=== PATIENT | male | born 1965 | race Caucasian/White ===

== ENCOUNTER 2017-04-14 23:24 | Inpatient (IN) | payer OTHER ==
[2017-04-14] MEDS ORDERED: MORPHINE SULFATE 10 MG/ML INJ IV PRN (23:55)
[2017-04-14] MEDS ORDERED: KETOROLAC TROMETHAMINE INJ/PF 30 MG/1 ML SDV IV ONE (23:55)
[2017-04-15] MEDS ORDERED: KETOROLAC TROMETHAMINE INJ/PF 30 MG/1 ML SDV ONE (00:01)
[2017-04-15 00:03] LABS: ABSOLUTE BASOPHILS # (AUTO) 0.1 10^3/uL (0.0-0.2); ABSOLUTE EOSINOPHILS # (AUTO) 0.2 10^3/uL (0.0-0.6); ABSOLUTE LYMPHOCYTES (AUTO) 3.9 10^3/uL (0.5-4.7); ABSOLUTE MONOCYTES (AUTO) 1.4 10^3/uL (0.1-1.4); ABSOLUTE NEUT (AUTO) 12.5 10^3/uL (1.7-8.2); BASOPHILS % (AUTO) 0.6 % (0-2); EOSINOPHILS % (AUTO) 1.2 % (0-6); HEMOGLOBIN 15.6 g/dL (13.5-17.0); HGB HCT DIFFERENCE 2.8; LYMPHOCYTES % (AUTO) 21.4 % (13-45); MEAN CORPUSCULAR HEMOGLOBIN 32.4 pg (27.0-33.4); MEAN CORPUSCULAR HGB CONC 35.3 g/dL (32.0-36.0); MEAN CORPUSCULAR VOLUME 92 fl (80-97); MONOCYTES % (AUTO) 7.8 % (3-13); RED CELL DISTRIBUTION WIDTH 13.5 % (11.5-14.0); WHITE BLOOD COUNT 18.1 10^3/uL (4.0-10.5)
[2017-04-15] MEDS ORDERED: HYDROMORPHONE HCL INJ/PF 2 MG/ML AMPULE ONE ×2 (00:10→10:56)
[2017-04-15] MEDS ORDERED: HYDROMORPHONE HCL INJ/PF 2 MG/ML AMPULE IV ONE ×2 (00:12)
[2017-04-15 00:17] LABS: ADD ON TESTING BLD IN LAB ACKNOWLEDGE
[2017-04-15 00:20] LABS: ANION GAP 14 (5-19); BLOOD UREA NITROGEN 19 mg/dL (7-20); CALCIUM 11.4 mg/dL (8.4-10.2); CARBON DIOXIDE 27 mmol/L (22-30); CHLORIDE 105 mmol/L (98-107); CREATININE RESULT 1.35 mg/dL (0.52-1.25); GLUCOSE 103 mg/dL (75-110); POTASSIUM 3.9 mmol/L (3.6-5.0); SODIUM 146.3 mmol/L (137-145)
--- NOTE | 2017-04-15 00:20 | ER Document Report ---
ED General - General Chief Complaint: Abdominal Pain Stated Complaint: ABDOMINAL PAIN Time Seen by Provider: 04/14/17 23:41 Notes: Patient is a 51-year-old male without past medical history, no prior surgical history who presents with acute onset of diffuse abdominal pain most focal to the right lower quadrant. Patient states that approximately 1 hour prior to arrival he was outside smoking, cough and then developed a severe, generalized abdominal pain worse in the right lower aspect of his abdomen. States that he immediately developed diaphoresis, nausea, and felt as though he was going to pass out. States the pain was so severe he could hardly breathe. It is a stabbing, generalized, constant pain. Nothing improves or worsens the pain. Patient denies any history of similar symptoms in the past. He states this does not feel he prior kidney stones. He has not had any hematuria. TRAVEL OUTSIDE OF THE [place] IN LAST 30 DAYS: No - Related Data Allergies/Adverse Reactions: No Known Allergies Allergy (Verified 04/14/17 23:28) Past Medical History - General Information source: Patient - Social History Smoking Status: Current Every Day Smoker Frequency of alcohol use: Occasional Drug Abuse: None Lives with: Spouse/Significant other Family History: Reviewed & Not Pertinent Patient has suicidal ideation: No Patient has homicidal ideation: No Renal/ Medical History: Denies: Hx Peritoneal Dialysis Review of Systems - Review of Systems Notes: Constitutional: Negative for fever. HENT: Negative for sore throat. Eyes: Negative for visual changes. Cardiovascular: Negative for chest pain. Respiratory: Negative for shortness of breath. Gastrointestinal: Positive for abdominal pain and nausea Genitourinary: Positive for right testicular pain Musculoskeletal: Negative for back pain. Skin: Negative for rash. Neurological: Negative for headaches, weakness or numbness. 10 point ROS negative except as marked above and in HPI. Physical Exam - Vital signs Vitals: Temp Pulse Resp BP Pulse Ox 97.4 F 99 18 112/54 L 97 04/14/17 23:29 04/14/17 23:29 04/14/17 23:29 04/14/17 23:29 04/14/17 23:29 Interpretation: Normal Notes: PHYSICAL EXAMINATION: GENERAL: Appears unwell, very uncomfortable, in distress secondary to pain HEAD: Atraumatic, normocephalic. EYES: Pupils equal round and reactive to light, extraocular movements intact, sclera anicteric, conjunctiva are normal. ENT: nares patent, oropharynx clear without exudates. Moderately dry mucous membranes. NECK: Normal range of motion, supple without lymphadenopathy LUNGS: Breath sounds clear to auscultation bilaterally and equal. No wheezes rales or rhonchi. HEART: Regular tachycardia without murmurs ABDOMEN: Diffuse rigidity, guarding throughout. Most focal tenderness to the right lower quadrant. Bowel sounds are present : No focal testicular tenderness. Positive cremasteric reflex bilaterally. EXTREMITIES: Normal range of motion, no pitting or edema. No cyanosis. NEUROLOGICAL: No focal neurological deficits. Moves all extremities spontaneously and on command. PSYCH: Appears to be in obvious pain SKIN: Warm, Dry, normal turgor, no rashes or lesions noted. Course - Re-evaluation Re-evalutation: 04/15/17 00:20 Patient presents with acute onset of diffuse generalized abdominal pain most focal to the right lower quadrant. Patient is very ill in appearance, diaphoretic, pale, and has a very concerning abdominal exam. He has diffuse rigidity and guarding throughout. Most focally tender in the right lower quadrant although there is no area of his abdomen that he is not acutely tender. He also has focal right CVA tenderness. Testicular exam unremarkable without any evidence of an acute torsion. Differential diagnosis is concerning for possible acute bowel perforation, aneurysmal rupture, mesenteric ischemia, less likely to be an acute bowel obstruction or appendicitis based on exam and history. Nephrolithiasis would be also on the differential but again the degree of focal tenderness on his abdominal examination as well as rigidity would be atypical for this diagnosis. Will proceed with a stat CT of the abdomen and pelvis to further evaluate. Initial laboratories do show an acute leukocytosis at 18.1. 04/15/17 01:27 CT scan does reveal an acute appendicitis. This is very consistent with patient 's history however so I went in rediscuss to the patient. He now states that he has had some mild right lower quadrant abdominal pain since approximately 10 AM this morning but he did not think anything of it stating "I thought I just pulled a muscle I did not think it was important before". CT scan otherwise shows bilateral cysts much larger on the right kidney. I have discussed with the surgeon extension professor Dr. Álvarez evaluate for admission and surgical management. - Vital Signs Vital signs: Temp Pulse Resp BP Pulse Ox 97.4 F 99 18 112/54 L 97 04/14/17 23:29 04/14/17 23:29 04/14/17 23:29 04/14/17 23:29 04/14/17 23:29 - Laboratory Result Diagrams: 04/14/17 23:55 04/14/17 23:55 Laboratory results interpreted by me: 04/14/17 04/14/17 04/14/17 23:55 23:55 23:55 WBC 18.1 H Absolute Neutrophils 12.5 H Sodium 146.3 H Creatinine 1.35 H Est GFR (Non-Af Amer) 55 L Calcium 11.4 H Lipase 480.8 H - Diagnostic Test Radiology reviewed: Image reviewed, Reports reviewed Critical Care Note - Critical Care Note Total time excluding time spent on procedures (mins): 40 Comments: Critical care time spent obtaining history from patient or surrogate, discussions with consultants, development of treatment plan with patient or surrogate, evaluation of patient's response to treatment, examination of patient , ordering and performing treatments and interventions, ordering and review of laboratory studies, re-evaluation of patient's condition, ordering and review of radiographic studies and review of old charts Discharge - Discharge Clinical Impression: Acute appendicitis Qualifiers: Acute appendicitis type: with generalized peritonitis Qualified Code(s): K35.2 - Acute appendicitis with generalized peritonitis Condition: Fair Disposition: ADMITTED OBSERVATION Admitting Provider: Surgicalist - Preeti Unit Admitted: Surgical Floor
[2017-04-15] MEDS ORDERED: NORMAL SALINE 1000 ML 1,000 ML IV ONE (00:22)
[2017-04-15 00:36] LABS: ALANINE AMINOTRANSFERASE 30 U/L (21-72); ALBUMIN 4.7 g/dL (3.5-5.0); ALKALINE PHOSPHATASE 82 U/L (38-126); ASPARTATE AMINO TRANSFERASE 25 U/L (17-59); BILIRUBIN,DIRECT 0.4 mg/dL (0.0-0.4); BILIRUBIN,TOTAL 0.7 mg/dL (0.2-1.3); LIPASE 480.8 U/L (23-300); TOTAL PROTEIN 7.8 g/dL (6.3-8.2)
--- NOTE | 2017-04-15 01:15 | RADIOLOGY REPORT (SQ) ---
EXAM DESCRIPTION: CT ABD/PELVIS WITH IV ONLY COMPLETED DATE/TIME: 04/15/2017 12:44 am REASON FOR STUDY: diffuse abdominal pain, eval perforation COMPARISON: None. TECHNIQUE: CT scan of the abdomen and pelvis performed using helical scanning technique with dynamic intravenous contrast injection. No oral contrast. Images reviewed with lung, soft tissue, and bone windows. Reconstructed coronal and sagittal MPR images reviewed. Delayed images for evaluation of the urinary system also acquired. All images stored on PACS. All CT scanners at this facility use dose modulation, iterative reconstruction, and/or weight based d osing when appropriate to reduce radiation dose to as low as reasonably achievable (ALARA). [facility]: Dose Right [facility]: CareDose [facility]: Dose Right [facility]: Teradose 4D [facility]: kontoblick CONTRAST TYPE AND DOSE: contrast/concentration: Isovue 370.00 mg/ml; Total Contrast Delivered: 98.0 ml; Total Saline Delivered: 72.1 ml RENAL FUNCTION: None available. RADIATION DOSE: Up-to-date CT equipment and radiation dose reduction techniques were employed. CTDIv ol: 10.0 - 11.6 mGy. DLP: 1175 mGy-cm.. LIMITATIONS: None. FINDINGS: LOWER CHEST: No significant findings. No nodules or infiltrates. LIVER: Normal size. No masses. No dilated ducts. SPLEEN: Normal size. No focal lesions. PANCREAS: No masses. No significant calcifications. No adjacent inflammation or peripancreatic fluid collections. Pancreatic duct not dilated. GALLBLADDER: No identified stones by CT criteria. No inflammatory changes to suggest cholecystitis. ADRENAL GLANDS: No significant masses or asymmetry. RIGHT KIDNEY AND URETER: Small cortical cysts with a large cyst in the lower pole measuring 7.3 cm. No solid masses. Several calyceal calculi. No hydronephrosis or hydroureter. LEFT KIDNEY AND URETER: Small cortical cysts. No solid masses. Several calyceal calculi. No hydr onephrosis or hydroureter. AORTA AND VESSELS: No aneurysm. No dissection. Renal arteries, SMA, celiac without stenosis. RETROPERITONEUM: No retroperitoneal adenopathy, hemorrhage or masses. BOWEL AND PERITONEAL CAVITY: Gastric distention. No masses or inflammatory changes. No free fluid or peritoneal masses. APPENDIX: Calcified appendicoliths in the lumen of the appendix. The appendix is distended with thic kening of the wall and inflammatory changes in the periappendiceal tissues. No focal fluid collectio n or extraluminal gas. PELVIS: No mass. No free fluid. Normal bladder. ABDOMINAL WALL: No masses. No hernias. BONES: No significant or acute findings. OTHER: No other significant finding. IMPRESSION: 1. ACUTE APPENDICITIS. NO EVIDENCE OF PERFORATION OR ABSCESS. 2. SEVERAL NONOBSTRUCTING CALYCEAL CALCULI IN BOTH KIDNEYS. CORTICAL CYSTS IN BOTH KIDNEYS WITH A LA RGE SIMPLE CYST IN THE RIGHT KIDNEY. 3. GASTRIC DISTENTION. 4. NO OTHER SIGNIFICANT FINDINGS. TECHNICAL DOCUMENTATION: JOB ID: [id number] Quality ID # [id number]: Final reports with documentation of one or more dose reduction techniques (e.g., Au tomated exposure control, adjustment of the mA and/or kV according to patient size, use of iterative reconstruction technique) 2010 [employer]- All Rights Reserved
[2017-04-15] MEDS ORDERED: PIPERACILLIN/TAZOBACTAM 3.375 GM VIAL IV ONE (01:26)
[2017-04-15] MEDS ORDERED: NORMAL SALINE 1000 ML 1,000 ML IV PRN (01:56)
--- NOTE | 2017-04-15 02:23 | HISTORY AND PHYSICAL E ---
History and Physical NAME: SHARAN BANUELOS : 1965 AGE: 51Y ADMITTED: 04/15/2017 ROOM: ED16 CHIEF COMPLAINT: Abdominal pains. HISTORY OF PRESENT ILLNESS: This is a 51-year-old male complaining of severe, diffuse abdominal pains around 5:00 p.m. The pains gradually subsided. The pains occurred around 10:00 p.m. tonight after dinner. The patient was diaphoretic with diffuse abdominal tenderness per ER physician. CAT scan of the abdomen was done which showed acute appendicitis. His white count is elevated to 18.1 but afebrile. PAST HISTORY: History of hypertension and takes antihypertensive medication and anti-cholesterol medication. Denies any previous operations in the past. ALLERGIES: None known. SOCIAL HISTORY: Smokes a pack a day. Drinks socially. Denies recreational drug use. REVIEW OF SYSTEMS: Denies any visual or hearing problems. No sore throat. No chest pains or shortness of breath. No dysuria. GI as in HPI; abdominal pains associated with nausea. No diarrhea or constipation. No easy bruisability. No gland enlargement. Rest of the systems are negative. PHYSICAL EXAMINATION: GENERAL: Well-developed, well-nourished, 51-year-old, male. Alert and oriented. Complaining of abdominal pains. HEENT: Neck is supple. No thyromegaly. LUNGS: Clear. HEART: Regular sinus rhythm. ABDOMEN: Soft with localized tenderness with rebound on the right lower quadrant. EXTREMITIES: No edema. LABORATORY DATA: Showed a white count of 18.1, lipase of 480. IMPRESSION: Acute appendicitis. PLANS: 1. Start IV antibiotics. 2. Hydrate. 3. Repeat blood work, including CBC and lipase, this morning. 4. Then possible laparoscopic appendectomy. DICTATING PHYSICIAN: IGNACIO VAIL M.D. [id number] PHY#: [id number] ID: [id number] JOB#: [id number] ACCT: [id number] cc:NO Gildardo PINON
[2017-04-15 05:52] LABS: HEMATOCRIT 38.9 % (37.9-51.0); HGB HCT DIFFERENCE 0.7; MEAN CORPUSCULAR HEMOGLOBIN 31.4 pg (27.0-33.4); MEAN CORPUSCULAR HGB CONC 33.9 g/dL (32.0-36.0); MEAN CORPUSCULAR VOLUME 93 fl (80-97); RED CELL DISTRIBUTION WIDTH 13.8 % (11.5-14.0)
[2017-04-15 06:16] LABS: BAND NEUTROPHILS % (MANUAL) 7 % (3-5); BASOPHILS % (MANUAL) 0 % (0-2); EOSINOPHILS % (MANUAL) 0 % (0-6); LYMPHOCYTES % (MANUAL) 5 % (13-45); TOTAL CELLS COUNTED 100
[2017-04-15 06:18] LABS: BURR CELLS SLIGHT; OVALOCYTES SLIGHT; POIKILOCYTOSIS SLIGHT; TOXIC GRANULATION 1+
[2017-04-15 06:43] LABS: HEMOGLOBIN 13.2 g/dL (13.5-17.0)
[2017-04-15] MEDS: HYDROMORPHONE HCL INJ/PF 2 MG/ML AMPULE IV PRN ×3 (07:37→21:03)
[2017-04-15] MEDS ORDERED: LIDOCAINE 2% INJ-PF (20 MG/ML) 10 ML AMPUL ONE (07:53)
[2017-04-15] MEDS ORDERED: ONDANSETRON HCL INJ/PF 4 MG/2 ML SDV ONE (07:53)
[2017-04-15] MEDS ORDERED: METOCLOPRAMIDE HCL INJ/PF 10 MG/2 ML SDV ONE (07:53)
[2017-04-15] MEDS ORDERED: SUCCINYLCHOLINE CHLORIDE INJ 200 MG/10 ML VIAL ONE (07:53)
[2017-04-15] MEDS ORDERED: DEXAMETHASONE SOD PHOSPHATE INJ 4 MG/1 ML VIAL ONE (07:53)
[2017-04-15] MEDS ORDERED: ROCURONIUM BROMIDE INJ 50 MG/5 ML VIAL IV ONE (07:53)
[2017-04-15] MEDS ORDERED: PHENYLEPHRINE HCL INJ/PF 10 MG/1 ML SDV ONE (07:53)
[2017-04-15] MEDS ORDERED: PIPERACILLIN SODIUM/TAZOBACTAM 3.375 GM in DEXTROSE 5%-WATER 100 ML IV PRN (10:18)
[2017-04-15] MEDS ORDERED: MIDAZOLAM 2 MG/2 ML INJ ONE (10:56)
[2017-04-15] MEDS ORDERED: EPHEDRINE SULFATE INJ 50 MG/1 ML AMPULE ONE (10:57)
[2017-04-15] MEDS ORDERED: ACETAMINOPHEN 100 ML IV ONE (10:57)
[2017-04-15] MEDS ORDERED: PROPOFOL INJ 200 MG/20 ML VIAL IV ONE (10:57)
[2017-04-15] MEDS ORDERED: IBUPROFEN INJ 800 MG/8 ML VIAL IV ONE (10:57)
[2017-04-15] MEDS ORDERED: FENTANYL CITRATE INJ/PF 250 MCG/5 ML AMPULE ONE (12:10)
[2017-04-15] MEDS ORDERED: DIPHENHYDRAMINE HCL 50 MG/ML VIAL IV PRN (12:19)
[2017-04-15] MEDS ORDERED: FENTANYL CITRATE INJ/PF 100 MCG/2 ML AMPUL IV PRN ×3 (12:19)
[2017-04-15] MEDS ORDERED: PROMETHAZINE HCL INJ 25 MG/1 ML VIAL IV PRN ×2 (12:19)
[2017-04-15] MEDS ORDERED: MEPERIDINE HCL/PF INJ 25 MG/1 ML DISP.SYRIN IV PRN (12:19)
[2017-04-15] MEDS ORDERED: MORPHINE SULFATE 10 MG/ML INJ IV PRN (12:19)
[2017-04-15] MEDS ORDERED: ONDANSETRON HCL INJ/PF 4 MG/2 ML SDV IV PRN ×2 (12:19→14:02)
[2017-04-15] MEDS ORDERED: OXYCODONE-ACETAMINOPHEN 5-325 MG TABLET PO PRN ×2 (12:19)
--- NOTE | 2017-04-15 14:38 | OPERATIVE REPORT E ---
Operative Report NAME: SHARAN BANUELOS : 1965 AGE: 51Y DATE OF SURGERY: 04/15/2017 ROOM: 406 PREOPERATIVE DIAGNOSIS: Acute appendicitis. POSTOPERATIVE DIAGNOSIS: Perforated acute appendicitis. SURGEON: IGNACIO VAIL M.D. ANESTHESIA: General. INDICATION: This is a 51-year-old male complaining of right lower quadrant pains since yesterday. CAT scan of the abdomen last night showed acute appendicitis without any perforation or abscess. DESCRIPTION OF PROCEDURE: After adequate general anesthesia, the patient was placed in the supine position and the abdomen was prepped and draped in the usual sterile fashion. An appropriate timeout was called. Next, an infraumbilical elliptical incision was made and the fascia identified and subsequently divided between 2 Isidro clamps. The opening was then enlarged with a hemostat and a finger able to be passed through into the abdominal cavity. Next, a Suly trocar was inserted into the abdominal cavity and CO2 insufflated to a pressure of 15 mmHg. The camera was then inserted and 2 other trocars, a 5 mm in the suprapubic and a 12 mm in the left lower quadrant that was done under direct vision. Next, the appendix was then identified and noted to be inflamed. It was adherent to the small bowel. The small bowel was gently lysed and then showed the base of the appendix as a perforation that sealed by the small bowel. The patient also had some exudates around the area with some cloudy fluid. Cultures were obtained. Next, the mesoappendix was then serially divided and ligated with the Harmonic indu. The appendix was gingerly dissected because the perforation site is almost right at its takeoff from the cecum, maybe about 1 cm. While dissecting the appendix, the appendix got pulled out and amputated by pulling up. The appendix was then placed in an Endobag and pulled out through the umbilical port. Trocars were put back. Next, the cecum that was back down in the lateral gutter was then dissected and released to allow pulling up of the appendiceal stump and stapling it. There was also some fatty tissue around the area of the appendix on top of the cecum that was also divided and coagulated with harmonic indu. The stump of the appendix close to the cecum was then pulled up *------*. An Endo AJITH, 60 cm, blue russel, was then used to staple the stump of the appendix really close to the cecum and partially getting part of the cecal wall. Following this, the remnant of the appendix was put in an Endobag and pulled out through the umbilical port. The stump looks good without any evidence of bleeding. Following this, irrigation of the abdominal cavity was then performed using at least 7 L of saline until return flow was clear. The perforation site of the appendix had a small firm stool that extruded out and subsequently suctioned out with a large suction tube. That is the reason why the abdominal cavity was irrigated with at least 7 L of fluid to make sure all the stool that may have extruded out was irrigated. Also, a drain was then placed around the area of the appendiceal stump and on the right lateral gutter and brought out through the suprapubic port. It was then anchored to the skin with 3-0 nylon. The abdominal cavity was inspected and no evidence of abnormality. The wall of the small bowel noted to be slightly dusky that was buttressing the perforation on the appendix. However, it looks viable. There was a small amount of cloudy, whitish fluid on the right *------*. It was further irrigated until return flow was clear. The patient tolerated the procedure well. All the ports were removed and air allowed to come out of the port sites. Fascial defect in the infraumbilical area was then closed with a [id number] suture using 0 Vicryl, and anterior fascial defect on the left lower quadrant incision was closed with a [id number] suture using 0 Vicryl. The skin incisions were then closed with running subcuticular closure using 4-0 Vicryl undyed. Sterile dressings were then placed over the incision sites. The patient tolerated the procedure well. Needle, instrument, and sponge count were all correct. Estimated blood loss about 20 mL. The patient was brought to the PACU in a satisfactory condition. DICTATING PHYSICIAN: IGNACIO VAIL M.D. [id number] PHY#: [id number] ID: [id number] JOB#: [id number] ACCT: [id number] cc:IGNACIO VAIL M.D. >
[2017-04-15] MEDS: PIPERACILLIN SODIUM/TAZOBACTAM 3.375 GM in NORMAL SALINE 100 ML IV SCH ×2 (17:36→23:11)
[2017-04-15] MEDS: ENOXAPARIN SODIUM INJ 40 MG/0.4 ML DISP.SYRIN SUBCUT SCH (23:11)
[2017-04-16] MEDS: PIPERACILLIN SODIUM/TAZOBACTAM 3.375 GM in NORMAL SALINE 100 ML IV SCH ×4 (05:31→23:23)
[2017-04-16] MEDS: HYDROMORPHONE HCL INJ/PF 2 MG/ML AMPULE IV PRN ×2 (05:33→10:46)
[2017-04-16] MEDS ORDERED: NICOTINE 21 MG/24 HR PATCH.TD24 TD ONE (06:45)
[2017-04-16 07:27] LABS: HEMATOCRIT 34.2 % (37.9-51.0); HEMOGLOBIN 11.8 g/dL (13.5-17.0); HGB HCT DIFFERENCE 1.2; MEAN CORPUSCULAR HEMOGLOBIN 31.9 pg (27.0-33.4); MEAN CORPUSCULAR HGB CONC 34.4 g/dL (32.0-36.0); MEAN CORPUSCULAR VOLUME 93 fl (80-97); RED BLOOD COUNT 3.69 10^6/uL (4.35-5.55); RED CELL DISTRIBUTION WIDTH 13.8 % (11.5-14.0); WHITE BLOOD COUNT 21.2 10^3/uL (4.0-10.5)
[2017-04-16 07:46] LABS: ANION GAP 10 (5-19); BLOOD UREA NITROGEN 16 mg/dL (7-20); CALCIUM 9.3 mg/dL (8.4-10.2); CARBON DIOXIDE 23 mmol/L (22-30); CHLORIDE 108 mmol/L (98-107); CREATININE RESULT 1.09 mg/dL (0.52-1.25); GLUCOSE 91 mg/dL (75-110); LIPASE 548.5 U/L (23-300); SODIUM 140.8 mmol/L (137-145)
[2017-04-16 07:58] LABS: BAND NEUTROPHILS % (MANUAL) 4 % (3-5); BASOPHILS % (MANUAL) 0 % (0-2); EOSINOPHILS % (MANUAL) 1 % (0-6); LYMPHOCYTES % (MANUAL) 10 % (13-45); TOTAL CELLS COUNTED 100
[2017-04-16 07:59] LABS: TOXIC VACUOLATION PRESENT
[2017-04-16 08:01] LABS: BURR CELLS SLIGHT; POIKILOCYTOSIS SLIGHT
[2017-04-16] MEDS: METRONIDAZOLE 500 MG/NS RTU 100 ML IV SCH ×3 (11:56→23:24)
[2017-04-16] MEDS: KETOROLAC TROMETHAMINE INJ/PF 30 MG/1 ML SDV IV SCH ×3 (11:57→23:24)
--- NOTE | 2017-04-16 15:48 | PDOC PROGRESS REPORT ---
Subjective Progress Note for:: 04/16/17 Subjective:: Patient having some shortness of breath this morning; supplemental oxygen provided. Patient is a chronic smoker, 1 pack per day During the course of the day the patient did ambulate. Physical Exam Vital Signs: Temp Pulse Resp BP Pulse Ox 99.3 F 105 H 17 105/60 95 04/16/17 11:54 04/16/17 11:54 04/16/17 11:54 04/16/17 11:54 04/16/17 11:54 Intake & Output 04/15/17 04/16/17 04/17/17 06:59 06:59 06:59 Intake Total 12414 Output Total 200 7090 Balance -200 4610 Weight 90.7 kg General appearance: PRESENT: mild distress GI/Abdominal exam: PRESENT: other - Abdominal incisions healing satisfactorily. Abdomen is appropriately tender. Serosanguineous material coming from drain. Results Laboratory Results: 04/16/17 06:55 04/16/17 06:55 04/16/17 04/16/17 06:55 06:55 WBC 21.2 H RBC 3.69 L Hgb 11.8 L Hct 34.2 L MCV 93 MCH 31.9 MCHC 34.4 RDW 13.8 Plt Count 249 Seg Neutrophils % Not Reportable Lymphocytes % Not Reportable Monocytes % Not Reportable Eosinophils % Not Reportable Basophils % Not Reportable Absolute Neutrophils Not Reportable Absolute Lymphocytes Not Reportable Absolute Monocytes Not Reportable Absolute Eosinophils Not Reportable Absolute Basophils Not Reportable Sodium 140.8 Potassium 4.0 Chloride 108 H Carbon Dioxide 23 Anion Gap 10 BUN 16 Creatinine 1.09 Est GFR ( Amer) > 60 Est GFR (Non-Af Amer) > 60 Glucose 91 Calcium 9.3 Lipase 548.5 H Impressions: Abdomen/Pelvis CT 04/15/17 00:14 IMPRESSION: 1. ACUTE APPENDICITIS. NO EVIDENCE OF PERFORATION OR ABSCESS. 2. SEVERAL NONOBSTRUCTING CALYCEAL CALCULI IN BOTH KIDNEYS. CORTICAL CYSTS IN BOTH KIDNEYS WITH A LARGE SIMPLE CYST IN THE RIGHT KIDNEY. 3. GASTRIC DISTENTION. 4. NO OTHER SIGNIFICANT FINDINGS. Assessment & Plan - Diagnosis (1) Acute appendicitis Qualifiers: Acute appendicitis type: with generalized peritonitis Qualified Code(s): K35.2 - Acute appendicitis with generalized peritonitis Is this a current diagnosis for this admission?: Yes Plan: Patient is one day status post laparoscopic appendectomy for acute appendicitis with contained rupture, drain placement. Overall doing well. Recommendations: 1. Intravenous Flagyl added to antimicrobial armamentarium 2. Advance diet slowly; continue ambulation 3. We will continue IV antibiotics today, and consider discharge home tomorrow after drain removal
[2017-04-16] MEDS ORDERED: OXYCODONE-ACETAMINOPHEN 5-325 MG TABLET PO PRN (21:19)
[2017-04-16] MEDS: ENOXAPARIN SODIUM INJ 40 MG/0.4 ML DISP.SYRIN SUBCUT SCH (23:24)
[2017-04-17] MEDS: PIPERACILLIN SODIUM/TAZOBACTAM 3.375 GM in NORMAL SALINE 100 ML IV SCH ×4 (06:51→23:36)
[2017-04-17] MEDS: NICOTINE 21 MG/24 HR PATCH.TD24 TD SCH (06:51)
[2017-04-17] MEDS: METRONIDAZOLE 500 MG/NS RTU 100 ML IV SCH ×4 (06:52→23:36)
[2017-04-17] MEDS: KETOROLAC TROMETHAMINE INJ/PF 30 MG/1 ML SDV IV SCH ×4 (06:52→23:36)
--- NOTE | 2017-04-17 09:52 | PROGRESS NOTE E ---
Progress Note NAME: SHARAN BANUELOS : 1965 AGE: 51Y DATE: 04/17/2017 ROOM: 406 SUBJECTIVE: This is about the second postop day post laparoscopic appendectomy. He is just taking liquids p.o. and hesitant to take soft diet. He still has some pains on the right side of the right lateral lower quadrant area with mild tenderness. His white count was elevated and we will repeat his white count in the morning and hopefully we can discharge him then if the white count is trending down and he is tolerating soft diet. In the meantime, continue on IV antibiotic therapy. DICTATING PHYSICIAN: IGNACIO VAIL M.D. [id number] PHY#: [id number] ID: [id number] JOB#: [id number] ACCT: [id number] cc: >
[2017-04-17] MEDS: ENOXAPARIN SODIUM INJ 40 MG/0.4 ML DISP.SYRIN SUBCUT SCH (22:28)
[2017-04-18] MEDS: NICOTINE 21 MG/24 HR PATCH.TD24 TD SCH (05:51)
[2017-04-18] MEDS: KETOROLAC TROMETHAMINE INJ/PF 30 MG/1 ML SDV IV SCH (05:51)
[2017-04-18] MEDS: PIPERACILLIN SODIUM/TAZOBACTAM 3.375 GM in NORMAL SALINE 100 ML IV SCH (05:51)
[2017-04-18] MEDS: METRONIDAZOLE 500 MG/NS RTU 100 ML IV SCH (05:51)
[2017-04-18 08:15] LABS: HEMATOCRIT 36.4 % (37.9-51.0); HEMOGLOBIN 12.6 g/dL (13.5-17.0); HGB HCT DIFFERENCE 1.4; MEAN CORPUSCULAR HEMOGLOBIN 31.5 pg (27.0-33.4); MEAN CORPUSCULAR HGB CONC 34.5 g/dL (32.0-36.0); MEAN CORPUSCULAR VOLUME 91 fl (80-97); RED BLOOD COUNT 3.98 10^6/uL (4.35-5.55); RED CELL DISTRIBUTION WIDTH 13.8 % (11.5-14.0)
[2017-04-18 10:16] VITALS: BP 142/81
--- NOTE | 2017-04-18 11:37 | DISCHARGE SUMMARY E ---
Discharge Summary NAME: SHARAN BANUELOS : 1965 AGE: 51Y ADMITTED: 04/16/2017 DISCHARGED: 04/18/2017 PROCEDURE DONE: On 04/16/2017, laparoscopic appendectomy. FINAL DIAGNOSIS: Ruptured acute appendicitis. HOSPITAL COURSE: This is a 51-year-old male complaining of pains in the right side and down to the right lower quadrant several hours prior to admission. On 04/16/2017, patient underwent laparoscopic appendectomy for a perforated acute appendicitis. Postoperatively, he continued to increase his white count on the first postop day, but gradually decreased on the day of discharge to 16,000. Patient able to tolerate a regular diet as well as have a bowel movement on the day of discharge. The drain was also removed on 04/18/2017. His white count came down to 16,000 on 04/18/2017. He was advised not to do any lifting more than 15 pounds for the next week or 2 or until seen in the clinic after about a week. Prescription was given for him to take Cipro 500 mg p.o. b.i.d. for about 10 days. Culture showed E. coli on the culture obtained during the procedure. Also, prescription for Percocet was given to take one every 6 hours p.r.n. for pain. Patient discharged today, 04/18/2017, with the above final diagnosis. DICTATING PHYSICIAN: IGNACIO VAIL M.D. [id number] PHY#: [id number] ID: [id number] JOB#: [id number] ACCT: [id number] cc:Gildardo HOLLINGSWORTH MD, M.D. [facility],
== END 2017-04-18 10:47 | disposition home or self-care (01) | DRG 340 ==
LOC: ER 23:24 → EH 04-15 01:56 → UNDOADMOB 04-15 02:06 → EH 04-15 03:01 → 4N 04-15 03:01 → OBSVTOIN 04-16 14:00
PROVIDERS: ATTEND Surgery
PROC: 0W9G40Z Drainage of Peritoneal Cavity with Drainage Device, Percutaneous Endoscopic Approach (ICD-10-PCS; 2017-04-15)
PROC: 0DTJ4ZZ Resection of Appendix, Percutaneous Endoscopic Approach (ICD-10-PCS; principal; 2017-04-15 11:30)
DX: K35.2 Acute appendicitis with generalized peritonitis (principal); K66.0 Peritoneal adhesions (postprocedural) (postinfection); B96.20 Unspecified Escherichia coli [E. coli] as the cause of diseases classified elsewhere; Z79.899 Other long term (current) drug therapy; F17.200 Nicotine dependence, unspecified, uncomplicated
CPT/HCPCS: 36415; 74177; 80048; 80076; 83690; 840; 85025; 85027; 87070; 87075; 87077; 87186; 87205; 88304; 94799; 96365; 96375; 96376; 99285; J0131; J0330; J1100; J1170; J1650; J1741; J1885; J2250; J2270; J2370; J2405; J2543; J2704; J2765; J3010; J3490; J7030